=== PATIENT | female | born 1955 ===

== ENCOUNTER 2024-12-18 08:33 | Outpatient (AMB) | payer MEDICARE, SELFPAY | END 2024-12-18 08:34 | disposition home or self-care (01) | LOC: HO.HMGAL 08:33 | PROVIDERS: PCP Nurse Practitioner Family; Visit Provider Registered Nurse Emergency | DX: J30.89 Other allergic rhinitis (principal) | CPT/HCPCS: 95117; 95165 ==

== ENCOUNTER 2025-01-27 10:50 | Outpatient (AMB) | payer MEDICARE, SELFPAY | END 2025-01-27 10:51 | disposition home or self-care (01) | LOC: HO.HMGAL 10:50 | PROVIDERS: PCP Nurse Practitioner Family; Visit Provider Registered Nurse Emergency | DX: J30.89 Other allergic rhinitis (principal) | CPT/HCPCS: 95117; 95165 ==

== ENCOUNTER 2025-03-12 09:43 | Outpatient (AMB) | payer MEDICARE, SELFPAY | END 2025-03-12 09:44 | disposition home or self-care (01) | LOC: HO.HMGAL 09:43 | PROVIDERS: PCP Internal Medicine; Visit Provider Registered Nurse Emergency | DX: J30.89 Other allergic rhinitis (principal) | CPT/HCPCS: 95117; 95165 ==